=== PATIENT | male | born 1950 | race Caucasian/White ===

== ENCOUNTER → 2023-12-10 | Day surgery (SDC) | payer MEDICARE, OTHER ==
[~2023-12-10] VITALS: Ht 160 cm; Wt 83.9 kg
[~2023-12-10] MED LIST: ALLO300T2 PO; ASCO-316 PO; ASPI-1497 PO; ATOR40TA70 PO; BALANCED SALT IRRIG SOLN 15ML ONE; BALANCED SALT IRRIG SOLN COMB1 500ML OP NR; CHOL100022 PO; CLOP75TA33 PO; CYCLOPENTOLATE HCL 1% OPHTH DROPS 2ML LEFTEYE NR; DULA0.75 SQ; EMPA1TAB7 PO; FENTANYL CITRATE/PF 50MCG/ML 2ML VIAL ONE; FISH1CAP34 PO; HYALURONATE SODIUM 10MG/ML 0.85ML SYRINGE IO ONE; HYDROMORPHONE HCL/PF 1MG/ML INJ IV PRN; INSU100I28 SQ; LABETALOL 5MG/ML 4ML INJ IV PRN; LOSA25TA26 PO; MEPERIDINE HCL/PF 25MG/ML CPJ IV PRN; MIDAZOLAM HCL 2 MG/2 ML VIAL ONE; ONDANSETRON HCL 4MG/2ML INJ IV PRN; PHENYLEPHRINE HCL 10% OPHTH DROPS 5ML LEFTEYE NR; REPA2TAB8 PO; SODIUM CHLORIDE 0.9% 1,000 ML IV SCH; SPIR25TA6 PO; TROPICAMIDE 1% OPHTH DROPS 15ML LEFTEYE NR; URO10 PO; VITA-384 PO; VITA400T9 PO
== END | disposition home or self-care (01) ==
LOC: OR 08:54
PROVIDERS: ATTEND Ophthalmology
DX: E11.36 Type 2 diabetes mellitus with diabetic cataract (principal); H25.89 Other age-related cataract; I10 Essential (primary) hypertension; I25.10 Atherosclerotic heart disease of native coronary artery without angina pectoris; E78.5 Hyperlipidemia, unspecified; M10.9 Gout, unspecified; E11.65 Type 2 diabetes mellitus with hyperglycemia; E66.01 Morbid (severe) obesity due to excess calories; Z79.82 Long term (current) use of aspirin; Z79.84 Long term (current) use of oral hypoglycemic drugs; Z79.899 Other long term (current) drug therapy; Z98.890 Other specified postprocedural states; Z68.32 Body mass index [BMI] 32.0-32.9, adult
CPT/HCPCS: 66984; 82962; J3010; J3490 ×2; J2250; V2632